=== PATIENT | male | born 2000 | race Caucasian/White ===

== ENCOUNTER 2023-11-05 19:59 | Emergency (ER) | payer MEDICAID ==
[~2023-11-05] VITALS: Ht 170.2 cm; Wt 65.4 kg
[2023-11-05 22:42] VITALS: BP 128/73; TEMP 98.5; O2SAT 100
== END 2023-11-06 | disposition left against medical advice (07) ==
LOC: M ED 19:59
DX: Z53.21 Procedure and treatment not carried out due to patient leaving prior to being seen by health care provider (principal)

== ENCOUNTER → 2024-05-13 | Outpatient (CLI) | payer OTHER | LOC: M RAD 14:31 | PROVIDERS: ATTEND Student in an Organized Health Care Education/Training Program | DX: M67.432 Ganglion, left wrist (principal) ==

== ENCOUNTER → 2024-05-17 | Outpatient (REF) | payer OTHER ==
[2024-05-17 15:28] LABS: HEMATOCRIT 45.6 % (42.0-52.0); HEMOGLOBIN 14.7 g/dl (13.5-17.5); MEAN CORPUSCULAR HEMOGLOBIN 27.4 pg (27.0-33.0); MEAN CORPUSCULAR HGB CONC 32.2 g/dl (32.0-36.5); MEAN CORPUSCULAR VOLUME 85.1 fl (80.0-96.0); PLATELET COUNT, AUTOMATED 290 10^3/uL (150-450); RED BLOOD COUNT 5.36 10^6/uL (4.30-6.10); WHITE BLOOD COUNT 9.5 10^3/uL (4.0-10.0)
[2024-05-17 15:51] LABS: ALBUMIN 4.8 G/DL (3.2-5.2); ALKALINE PHOSPHATASE 72 U/L (40-129); ALT/SGPT 22 U/L (7.0-40); AST/SGOT 20 U/L (<34); BILIRUBIN,TOTAL 0.4 MG/DL (0.3-1.2); BLOOD UREA NITROGEN 17 MG/DL (9-23); CALCIUM LEVEL 9.3 MG/DL (8.5-10.1); CARBON DIOXIDE LEVEL 28 MMOL/L (20-31); CHLORIDE LEVEL 103 MMOL/L (98-107); CHOLESTEROL LEVEL 225 MG/DL (<200); CREATININE FOR GFR 1.05 MG/DL (0.70-1.30); GLOMERULAR FILTRATION RATE > 60.0 (>60); GLUCOSE, FASTING 93 MG/DL (60-100); HDL CHOLESTEROL 64.2 MG/DL (>40); LDL CHOLESTEROL 144.8 MG/DL (<100); NON-HDL-C 160.8 MG/DL; POTASSIUM SERUM 4.4 MMOL/L (3.5-5.1); SODIUM LEVEL 144 MMOL/L (136-145); TOTAL PROTEIN 7.8 G/DL (5.7-8.2); TRIGLYCERIDES LEVEL 80 MG/DL (<150)
[2024-05-17 15:54] LABS: HEMOGLOBIN A1c 5.3 % (4.0-6.0)
[2024-05-17 15:59] LABS: THYROID STIMULATING HORMONE 1.076 uIU/ML (0.55-4.78)
[2024-05-17 16:00] LABS: TOTAL 25(OH) VITAMIN D 11.6 NG/ML (20.0-100.0)
== END ==
LOC: M LAB REF 12:22
PROVIDERS: ATTEND Student in an Organized Health Care Education/Training Program
DX: Z00.01 Encounter for general adult medical examination with abnormal findings (principal)